=== PATIENT | male | born 1945 | race Two or more races ===

== ENCOUNTER 2023-03-04 12:23 | Emergency (ER) | payer OTHER, BC ==
[~2023-03-04] VITALS: Ht 177.8 cm; Wt 89.8 kg
[2023-03-04] MEDS ORDERED: SYMBICORT 16010.2 GM (12:47)
[2023-03-04] MEDS ORDERED: ALLOPURINOL300 MG PO (12:47)
[2023-03-04] MEDS ORDERED: ESOMEPRAZOLE MA40 MG PO (12:47)
[2023-03-04] MEDS ORDERED: BACTRIM DS TAB1 EACH (12:47)
[2023-03-04] MEDS ORDERED: PRAMIPEXOLE DI0.5 MG PO (12:47)
[2023-03-04] MEDS ORDERED: LEVOCETIRIZINE D5 MG PO (12:48)
[2023-03-04 16:21] LABS: HEMATOCRIT 48.5 % (39.0-48.0); HEMOGLOBIN 16.7 g/dL (13-16.00); MEAN CELL VOLUME 90.9 fL (80.0-100.00); MEAN CORPUSCULAR HEMOGLOBIN 31.3 pg (27.00-32.0); MEAN CORPUSCULAR HGB CONC 34.4 g/dl (32.0-36.0); PLATELET COUNT 335 K/uL (150-450); RED BLOOD COUNT 5.34 M/uL (4.00-6.00); RED CELL DISTRIBUTION WIDTH 14.5 % (11.5-14.5)
[2023-03-04 16:36] LABS: CALCIUM 10.8 mg/dL (8.5-10.1); GFR 72.65; POTASSIUM 3.82 mEq/L (3.5-5.1)
== END 2023-03-04 17:47 | disposition home or self-care (01) ==
LOC: ER 12:24
PROVIDERS: General Practice
DX: J18.9 Pneumonia, unspecified organism (principal); R05.8 Other specified cough; Z88.8 Allergy status to other drugs, medicaments and biological substances; J45.909 Unspecified asthma, uncomplicated; Z20.822 Contact with and (suspected) exposure to COVID-19
CPT/HCPCS: 36415; 71046; 96365; 96366; 99284; J0456; J2930; J7050

== ENCOUNTER → 2023-03-04 14:21 | Outpatient (CLI) | payer OTHER, BC ==
[~2023-03-04 14:21] MED LIST: ALLOPURINOL300 MG PO; BACTRIM DS TAB1 EACH; ESOMEPRAZOLE MA40 MG PO; LEVOCETIRIZINE D5 MG PO; PRAMIPEXOLE DI0.5 MG PO; SYMBICORT 16010.2 GM
== END | disposition home or self-care (01) ==
LOC: LAB 14:21
DX: A49.3 Mycoplasma infection, unspecified site (principal)

== ENCOUNTER 2023-03-09 11:13 | Emergency (ER) | payer OTHER, BC ==
[~2023-03-09] VITALS: Ht 177.8 cm; Wt 108.4 kg
[2023-03-09 15:36] LABS: HEMATOCRIT 46.5 % (39.0-48.0); HEMOGLOBIN 15.9 g/dL (13-16.00); MEAN CELL VOLUME 88.8 fL (80.0-100.00); MEAN CORPUSCULAR HEMOGLOBIN 30.4 pg (27.00-32.0); MEAN CORPUSCULAR HGB CONC 34.3 g/dl (32.0-36.0); PLATELET COUNT 381 K/uL (150-450); RED BLOOD COUNT 5.24 M/uL (4.00-6.00); RED CELL DISTRIBUTION WIDTH 14.4 % (11.5-14.5)
[2023-03-09 15:53] LABS: CALCIUM 9.9 mg/dL (8.5-10.1); CREATININE SERUM 0.97 mg/dL (0.70-1.30); GFR 75.25; POTASSIUM 3.98 mEq/L (3.5-5.1)
[2023-03-09] MEDS ORDERED: INTESTINEX680 M1 PO (17:53)
[2023-03-09] MEDS ORDERED: AMOX-CLAV 875-1 EAC1 PO (17:53)
== END 2023-03-09 18:20 | disposition home or self-care (01) ==
LOC: ER
PROVIDERS: Nurse Practitioner Family
DX: J18.8 Other pneumonia, unspecified organism (principal); G47.30 Sleep apnea, unspecified; Z88.8 Allergy status to other drugs, medicaments and biological substances; Z87.09 Personal history of other diseases of the respiratory system; Z20.822 Contact with and (suspected) exposure to COVID-19; N28.89 Other specified disorders of kidney and ureter